=== PATIENT | female | born 1965 | race Caucasian/White ===

== ENCOUNTER 2020-03-22 17:36 | Emergency (ER) | payer OTHER, SELFPAY ==
--- NOTE | ~2020-03-22 | XR_ITS ---
EXAMINATION: XR chest 1V portable EXAM DATE: 03/22/2020 18:55 INDICATION: Dizziness. Hypertension. TECHNIQUE: Portable AP frontal chest x-ray was obtained. There is no prior study for comparison. FINDINGS: The lungs are clear. There are no pleural effusions. The cardiomediastinal silhouette is within normal limits. There is no pneumothorax suspected. The bones and soft tissues are unremarkab le. IMPRESSION: No acute cardiopulmonary findings. Reviewed, dictated and finalized at location A.
[2020-03-22 17:56] VITALS: BP 193/109; PULSE 98; RESP 18; TEMP 37.7; O2SAT 100
--- NOTE | 2020-03-22 18:04 | ECG_ITS ---
Measurements Intervals [place] Rate: 97 P: 46 [place]: 134 QRS: 22 QRSD: 99 T: 16 QT: 359 QTc: 456 Interpretive Statements SINUS RHYTHM FREQUENT VENTRICULAR PREMATURE COMPLEXES NONSPECIFIC ST & T-WAVE ABNORMALITY- INF/LAT LEADS ABNORMAL ECG Electronically Signed On 03-22-2020 19:01:19 CDT by Alexi Jeffers D.O.
[2020-03-22 18:48] VITALS: BP 218/90; PULSE 85; RESP 15; O2SAT 98
[2020-03-22 19:00] LABS: Basophils Absolute Auto 0.1 K/mm3 (0.0-0.1); Basophils Percent Auto 0.7 % (0.2-1.2); Eosinophils Absolute Auto 0.1 K/mm3 (0-0.3); Eosinophils Percent Auto 1.1 % (0-4.4); Hematocrit 44.4 % (37.0-47.0); Immature Granulocyte Absolute 0.04 K/mm3 (0.00-0.031); Immature Granulocyte Percent A 0.4 % (0-0.5); Lymphocytes Absolute Auto 1.41 K/mm3 (0.9-3.2); Lymphocytes Percent Auto 15.6 % (18.3-44.2); Mean Corpuscular HGB Conc 33.8 g/dl (32-36); Mean Corpuscular Hemoglobin 30.9 pg (26-34); Mean Corpuscular Volume 91.4 fl (80-100); Mean Platelet Volume 10.9 fl (7.4-10.4); Monocytes Absolute Auto 0.6 K/mm3 (0.1-0.6); Monocytes Percent Auto 6.3 % (2.6-8.5); Neutrophils Absolute Auto 6.9 K/mm3 (1.3-6.7); Neutrophils Percent Auto 75.9 % (45.5-73.1); Platelet Count Result 285 k/mm3 (150-375); Red Blood Count 4.86 M/mm3 (4.2-5.4); Red Cell Distribution Width 11.6 % (11.5-14.5); White Blood Count 9.1 K/mm3 (4.5-10.0)
[2020-03-22 19:12] LABS: INR 0.9; Prothrombin Time 11.6 Seconds (11.1-14.7)
[2020-03-22 19:13] LABS: Alanine Aminotransferase 22 U/L (4-35); Albumin Level 4.9 g/dL (3.5-5.1); Alkaline Phosphatase 101 U/L (38-126); Aspartate Amino Transferase 33 U/L (14-36); Bilirubin,Total 0.5 mg/dL (0.2-1.3); Lipase 109 U/L (23-300)
[2020-03-22 19:15] LABS: Blood Urea Nitrogen 10 mg/dL (7-17); Calcium 9.8 mg/dL (8.4-10.2); Carbon Dioxide 29 mmol/L (22-30); Chloride 101 mmol/L (98-107); Estimated CRCL calculation 84 ml/min; Estimated Glomerular Filt Rate > 60; Glucose 115 mg/dL (65-105); Potassium 3.6 mmol/L (3.4-5.0); Sodium 139 mmol/L (137-145)
--- NOTE | 2020-03-22 19:20 | PC.NURSE ---
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
[2020-03-22 19:24] LABS: Troponin I < 0.012 ng/mL (0.000-0.034)
[2020-03-22 19:35] VITALS: BP 183/113
[2020-03-22 19:37] VITALS: BP 145/104; BP 167/109; PULSE 103; RESP 17; O2SAT 98
[2020-03-22] MEDS: MECLIZINE HCL 25 MG TABLET PO (19:40)
--- NOTE | 2020-03-22 19:40 | ED.GENADULT ---
HPI - General Adult General Chief complaint: Recheck/Abnormal Lab/Rx Stated complaint: DIZZY SPELL/HTN Time Seen by Provider: 03/22/20 19:05 History of Present Illness HPI narrative: Patient is a 54-year-old female who presents to the ER with dizziness. Patient reports on Sunday she had an episode of rotational dizziness that was short-lived. She is done well over the last few days and then today she had a recurrent episode. It occurred after doing some work around the house and sitting to eat at lunch. When she would lay down in bed the dizziness would worsen also when laying side to side. Mild nausea with it but no vomiting. No chest pain or chest pressure or racing of the heart. Patient reports she is taking her blood pressure with this and it has been in the 190 systolic which is of concern to her. She has no headache or focal weakness in arm or leg. Feels unsteady when she is walking. Has not found any alleviating factors. She does have a history of positional vertigo that occurred 10 to 15 years ago. This feels similar but more intense. Related Data Home Medications Medication Instructions Recorded Confirmed progesterone micronized mg 03/22/20 Allergies Allergy/AdvReac Type Severity Reaction Status Date / Time ibuprofen Allergy Severe RAPID Verified 03/22/20 18:00 HEART BEAT AND NAUSEA latex Allergy Severe RASH & Verified 03/22/20 18:00 SWELLING Sulfa (Sulfonamide Allergy Severe Rash, Verified 03/22/20 18:00 Antibiotics) TACHCARDIA, NAUSEA Tetanus Vaccines and Toxoid Allergy Severe Rash Verified 03/22/20 18:00 Review of Systems Review of Systems: All systems reviewed & are unremarkable except as noted in HPI and below Constitutional: Constitutional: Denies fatigue, Denies fever(s) and Denies weakness ENT: Reports dizziness, Denies nasal congestion and Denies sore throat Cardiovascular: Cardiovascular: Denies chest pain, Denies rapid heart rate and Denies radiating jaw, neck or arm pain Respiratory: Respiratory: Denies cough, Denies dyspnea and Denies wheezing Gastrointestinal: Gastrointestinal: Denies abdominal pain, Reports nausea and Denies vomiting Neurologic: Reports dizziness, Denies syncope, Denies headache(s), Denies focal weakness and Denies numbness PMF Past Medical History Medical History (Updated 03/22/20 @ 21:09 by Juan Miguel Gonzalez MD) Sciatica Uterine fibroid Vertigo Surgical History Surgical History (Updated 03/22/20 @ 19:43 by Juan Miguel Gonzalez MD) History of hysteroscopy Social History Social History (Updated 03/22/20 @ 19:43 by Juan Miguel Gonzalez MD) Smoking status: Never smoker Gender identity (if verbalized by the patient): Female Exam Narrative: Exam Narrative: GENERAL: Well-appearing, well-nourished, and in no acute distress. HEAD: Normocephalic, atraumatic. ENT: Mucous membranes moist. CHEST: Clear to auscultation. No respiratory distress. HEART: Regular rate and rhythm. Normal peripheral pulses. ABDOMEN: Soft, nontender, nondistended. EXTREMITIES: Normal range of motion. No edema. SKIN: Warm, dry, no rash. NEURO: No focal deficits. Alert and oriented x3. Course Course Emergency Course: Patient feeling better with meclizine. Discharge home. Vital Signs Vital signs: Vital Signs Temperature 99.9 F H 03/22/20 17:56 Pulse Rate 98 03/22/20 17:56 Respiratory Rate 18 03/22/20 17:56 Blood Pressure 193/109 H 03/22/20 17:56 Pulse Oximetry 100 03/22/20 17:56 Temperature 99.9 F H 03/22/20 17:56 Pulse Rate 103 H 03/22/20 19:37 Respiratory Rate 17 03/22/20 19:37 Blood Pressure 145/104 H 03/22/20 19:37 Pulse Oximetry 98 03/22/20 19:37 Medical Decision Making Vital Signs Vital Signs: Vital Signs Temperature 99.9 F H 03/22/20 17:56 Pulse Rate 98 03/22/20 17:56 Respiratory Rate 18 03/22/20 17:56 Blood Pressure 193/109 H 03/22/20 17:56 Pulse Oximetry 100 03/22/20 17:56
[2020-03-22 19:57] LABS: Barbiturate Screen Urine Negative (Negative); Benzodiazepines Screen Urine Negative (Negative)
--- NOTE | 2020-03-22 20:00 | PC.NURSE ---
pt states she is unable to urinate again. pt states she has urinated twice while here and is unable to go again.
[2020-03-22 20:09] LABS: Amphetamine Screen Urine Negative (Negative); Cannabinoid Screen Urine Negative (Negative); Cocaine Screen Urine Negative (Negative); Methadone Screen Urine Negative (Negative); Opiate Screen Urine Negative (Negative); Phencyclidine Screen Urine Negative (Negative)
[2020-03-22 21:10] LABS: Add Urine Microscopic? YES; Appearance Urine Clear (Clear); Bacteria Urine 2+ /hpf; Bilirubin Urine Negative (Negative); Blood Urine 1+ (Negative); Color Urine Straw (Yellow); Glucose Urine UA Negative (Negative); Ketones Urine Negative (Negative); Leukocyte Esterase Ur 3+ LEU/UL (Negative); Nitrate Urine Negative (Negative); Protein Urine Negative (Negative); Specific Grav Ur 1.006 (1.001-1.035); Squamous Epithelial Cell Urine Few /hpf (Few); Urobilinogen Urine Negative mg/dL (<2.0); WBC Urine 21-30 /hpf
[2020-03-22 21:16] VITALS: BP 151/96; PULSE 87; RESP 12; O2SAT 98
== END 2020-03-22 21:17 | disposition home or self-care (01) ==
PROVIDERS: Emergency Medicine; Emergency Medicine Emergency Medical Services; Emergency Provider Emergency Medicine; PCP Internal Medicine
DX: H81.399 Other peripheral vertigo, unspecified ear (principal)
CPT/HCPCS: 36415; 71045; 80048; 80076; 80307; 81001; 81025; 83690; 84484; 85025; 85610; 85730; 87077; 87086; 87088; 87186; 93005; 99284; A9270

== ENCOUNTER → 2021-06-24 16:08 | Outpatient (CLI) | payer OTHER, SELFPAY ==
--- NOTE | ~2021-06-24 | XR_ITS ---
XR hip RT min 2V 06/24/2021 16:47 Indication: Right hip pain Procedure: 2 views right hip Comparison: No prior studies for comparison. Findings: There is anatomic alignment. No fracture or traumatic malalignment. There is a 2.2 cm scler otic lesion in the right ilium. Sacral foramen are symmetric. Mild osteitis pubis. Impression: 1: No acute bone or joint abnormality. 2: Sclerotic lesion of the right ilium. This most likely represents a bone island, although metastat ic disease should be considered if there is a history of malignancy. Reviewed, dictated and finalized at location A. Impression: 1: No acute bone or joint abnormality. 2: Sclerotic lesion of the right ilium. This most likely represents a bone isl and, although metastatic disease should be considered if there is a history of malignancy.
--- NOTE | ~2021-06-24 | XR_ITS ---
XR lumbar spine 2-3V 06/24/2021 16:47 Indication: Low back pain Procedure: 3 views lumbar spine Comparison: No prior studies for comparison. Findings: There is degenerative disc disease at L4-5 and L5-S1. There is facet hypertrophy at L5-S1. Vertebral body heights are maintained. No evidence for spondylolisthesis. Mild levoscoliosis. Impression: 1: Mild lumbar spondylosis with levoscoliosis. Reviewed, dictated and finalized at location A. Impression: 1: Mild lumbar spondylosis with levoscoliosis.
== END ==
PROVIDERS: PCP Internal Medicine; Visit Provider Internal Medicine
DX: M25.551 Pain in right hip (principal); M54.5 Low back pain; M47.816 Spondylosis without myelopathy or radiculopathy, lumbar region; M41.86 Other forms of scoliosis, lumbar region; M89.9 Disorder of bone, unspecified
CPT/HCPCS: 72100; 73502